=== PATIENT | female | born 2000 | race African-American/Black ===

== ENCOUNTER 2021-05-28 09:11 | Emergency (ER) | payer OTHER ==
[2021-05-28 09:27] VITALS: BP 133/84; PULSE 68; TEMP 98.5; BMI 24.4
[2021-05-28] MEDS ORDERED: LIDOCAINE 5% TOPICAL PATCH TP ONE (10:54)
[2021-05-28] MEDS ORDERED: ACETAMINOPHEN 500 MG TABLET (FP) PO ONE (10:54)
[2021-05-28] MEDS ORDERED: ACETAMINOPHEN 500 MG TABLET (FP) ONE (11:17)
[2021-05-28] MEDS ORDERED: LIDOCAINE 5% TOPICAL PATCH ONE (11:17)
[2021-05-28] MEDS ORDERED: LIDOCAINE PATCH REMOVAL MC SCH (22:00)
== END 2021-05-28 11:20 | disposition home or self-care (01) ==
LOC: JERFT 09:11
DX: M25.562 Pain in left knee (principal); W01.0XXA Fall on same level from slipping, tripping and stumbling without subsequent striking against object, initial encounter
CPT/HCPCS: 73564-TC-LT-FY; 99283-25